=== PATIENT | male | born 1945 | race Caucasian/White ===

== ENCOUNTER 2025-04-21 09:36 | Outpatient (AMB) | payer OTHER, SELFPAY ==
--- NOTE | 2025-04-21 09:58 | MHC.OFFVIS ---
Intake Visit Reasons: Elevated PSA Intake Note: New Patient is present for elevated PSA Urology Rx: none PVR:none Blood Thinners:none Imaging completed: none Labs done 01/17/25 PSA 11.0 Grading Supervisor Required: No Accompanied by: Self / Same As Patient Allergies No Known Allergies Allergy (Verified 04/21/25 10:02) HPI Comments Details: Chriss is a pleasant male. He is a patient of Dr. Lester. He is seen for the following urologic conditions - elevated PSA Elevated PSA He presents for Initial evaluation of elevated PSA - 11 Lower Urinary Tract Symptoms include - minimal Investigations include - PSA - 11 - NATHANIEL firm on right side Individualized Prostate Cancer Risk Calculator - PCPT Calculator Therapeutic plan will be - prostate needle biopsy, start finasteride Review of Systems Const Denies chills and Denies fever(s) Card Reports no additional complaints and Denies syncope Resp Denies cough GI Denies abdominal pain and Denies heartburn Reports as per HPI and Denies change in libido Neuro Denies syncope Psych Denies change in libido Endo Denies change in libido Physical Exam Const General: cooperative, healthy appearing, comfortable and no acute distress Orientation/consciousness: patient oriented x3 HEENT Face and sinus: Yes normal facial exam Mouth: moist mucous membranes Neck Neck: Yes normal visual inspection, Yes full ROM and Yes trachea midline Chest Chest palpation & inspection: normal inspection of the chest Resp Effort & Inspection: normal respiratory effort, able to speak in complete sentences and no respiratory distress GI Inspection: Yes normal to inspection Rectal Exam - Male: Yes normal sphincter tone and Yes prostate normal Male General Exam: Yes normal external exam Penis: normal penis and circumcised Meatus: meatus normal Scrotum: scrotum normal Testes: Testes normal Back/Spine/Pelvis Cervical Spine: normal cervical lordosis Thoracic/Lumbar Spine: thoracic and lumbar spine normal to inspection Skin General skin exam: no rashes or lesions noted Neuro General: patient oriented x3, gait normal, tone normal and moves all extremities Extrem General: Yes normal to inspection and Yes capillary refill normal Assessment & Plan Assessment & Plan (1) Elevated PSA: Code(s): R97.20 - Elevated prostate specific antigen [PSA] Category: Medical Plan Risks and benefits regarding trans rectal ultrasound with prostate biopsy were discussed. Options of continued surveillance, no treatment and biopsy were offered. The risks include but are not limited to, urinary tract infection, sepsis, difficulty urinating, bleeding into the rectum or bladder that requires intervention and transfusion,and failure to diagnose prostate cancer. The patient understands the options and the risks involved. They wish to proceed. Printed information was provided to ensure he remains off anticoagulation for the appropriate length of time. He may require cardiology or PCP clearance. An antibiotic will be administered prior to, and following the procedure Medications: New levofloxacin take 1 tablet day before procedure, 1 tablet day of procedure and 1 tablet day after procedure 500 mg PO DAILY 3 tabs 0RF 3 days R97.20 - Elevated prostate specific antigen [PSA] finasteride 5 mg PO DAILY 90 tabs 1RF 90 days R97.20 - Elevated prostate specific antigen [PSA] Patient Instructions: This note is constructed using voice recognition software. While every effort has been made to ensure accuracy horizontal boring mill set up operator errors may have been included. Imaging studies, laboratory and physical exam results were discussed and reviewed in detail. No major barriers to patient understanding were identified. An opportunity to ask questions regarding the treatment plan was provided. All questions were answered. The patient expressed understanding and agreement with the above treatment plan. The patient is aware they should contact our office by phone for worsening of their current condition or the appearance of new urologic symptoms. Compliance is encouraged with any medications and followup testing that is ordered. It is a privilege to participate in the urologic care of your patient. If you have any questions or concerns regarding treatment for the above conditions, or other urologic issues, please do not hesitate to contact me. The office telephone contact is [phone]. Sincerely, Dr James Euceda MD, YAZMIN [facility] - Urology Compassionate Specialist Care for the Genitourinary System Coding Level of Care Code New Pt Level 4 (39524) Diagnoses Elevated PSA R97.20
== END 2025-04-21 10:27 | disposition home or self-care (01) ==
LOC: HO.HUSH 09:37
PROVIDERS: PCP Internal Medicine; Visit Provider Urology
DX: R97.20 Elevated prostate specific antigen [PSA] (principal); Z13.9 Encounter for screening, unspecified
CPT/HCPCS: 99204

== ENCOUNTER → 2025-04-21 09:36 | Outpatient (BNVA) | payer OTHER, SELFPAY | PROVIDERS: PCP Internal Medicine; Visit Provider Urology | DX: R97.20 Elevated prostate specific antigen [PSA] (principal) | CPT/HCPCS: 81003 ==

== ENCOUNTER 2025-05-16 07:46 | Outpatient (REF) | payer OTHER, SELFPAY ==
--- OUTSIDE RECORDS SUMMARY | 2025-05-16 07:49 | XMS_ITS | Clinical Summary ---
Author Organization [facility] Address [address] [place] [address] Phone Care Team Providers Care High Density Talc Coater Operator Name Role Phone José Miguel Schultz MD Primary Care Provider Allergies No known active allergies Medications pravastatin (PRAVACHOL) 20 MG tablet Take 20 mg by mouth daily. Active Active Problems No known active problems Social History Tobacco Use Types Packs/Day Years Used Date Smoking Tobacco: Former Smokeless Tobacco: Never Alcohol Use Standard Drinks/Week Comments Yes 0 (1 standard drink = 0.6 oz pur e alcohol) Education Answer Date Recorded Are you interested in more education? Not on flavio e 12/05/2022 Are you concerned about learning? Not on file 12/05/2022 No 12/05/2022 No 12/05/2022 Digital Access Answer Date Recorded No 01/03/2023 No 01/03/2023 No 01/03/2023 Reliable internet access at home? Not on file 01/03/2023 Device with a working camera? Not on file Sex and Gender Information Value Date Recorded Sex Assigned at Not on file Legal Sex Male 8:41 AM EDT Gender Identity Not on file Sexual Orientation Not on file Last Filed Vital Signs Vital Sign Reading Time Taken Comments Blood Pressure - - Pulse - - Temperature - - Respiratory Rate - - Oxygen Saturation - - Inhaled Oxygen Concentration - - Weight 99.8 kg (220 lb) 12/24/2018 1:33 PM EDT Height 177.8 cm (5' 10 ) 12/24/2018 1:33 PM EDT Body Mass Index 31.57 12/24/2018 1:33 PM EDT Plan of Treatment Health Maintenance Due Date Last Done Comments Adult Td,Tdap Booster 1944 LIPID PANEL 1944 DEPRESSION SCREENING 1956 SMOKING Hx and SMOKELESS TOBACCO SCREENING 1957 PNEUMOCOCCAL VACCINES (50+ years) (1 of 1 - PCV) 1994 ZOSTER VACCINES (1 of 2) 1994 RSV VACCINE (1 - 1-dose 75+ series) 2019 INFLUENZA VACCINE (#1) 2025 COVID-19 VACCINE (3 - 2024-2 6 season) 2025 10/04/2020, 09/13/2020 HEPATITIS A VACCINES Aged Out No long er eligible based on patient's age to complete this topic HIB VACCINES Aged Out No longer eligi ble based on patient's age to complete this topic MENINGOCOCCAL VACCINES (ACWY) Aged Out No longer eligible based on patient's age to complete this topic MENINGOCOCCAL VACCINES (B) Aged Out N o longer eligible based on patient's age to complete this topic Medical Devices Not on file Insurance [employer] TOTAL CHOICE INDEMNITY [employer] TOTAL CHOICE INDEMNITY [employer] TOTAL CHOICE INDEMNITY [employer] TOTAL CHOICE INDEMNITY [employer] TOTAL CHOICE INDEMNITY [employer] TOTAL CHOICE INDEMNITY [employer] TOTAL CHOICE INDEMNITY [employer] TOTAL CHOICE INDEMNITY [facility] TOTAL CHOICE INDEMNITY Care Teams High Density Talc Coater Operator Relationship Specialty Start Date End Date José Miguel Schultz MD [address] [place] [address] PCP - General Internal Medicine 12/09/18 Additional Source Comments The information contained in this document represents components of the legal health record. It is not the complete legal health record.[facility]
[2025-05-16] MEDS: Lidocaine HCl 1 % MPF 30 ML VIAL SUBCUT (08:17)
--- NOTE | 2025-05-16 08:42 | P.OP_ITS ---
Operative Note Operative Note Date of Service: 05/16/25 Narrative: Preoperative diagnosis: Elevated PSA Postoperative diagnosis: Elevated PSA Procedure: 1. transrectal ultrasound measurement of prostate 2. transrectal ultrasound-guided pudendal nerve block 3. transrectal ultrasound-guided prostate biopsy 12 core Surgeon: Dr. James Euceda Anesthetic: 10cc 1% lidocaine Indications for procedure: Elevated PSA Counselling: Technical aspects, risks and benefits of proposed procedure were discussed in full. All questions have been answered, written consent has been obtained and patient agrees to proceed. Procedure: The patient was brought into the procedure area and placed in a left lateral decubitus position. Patient identity confirmed. Perioperative antibiotics confirmed. Safety pause time out performed. NATHANIEL was performed to dilate rectal sphincter Iodine 10cc with 60 cc gel was placed per rectum to reduce infection risk using a catheter tip syringe. 8 Hz Maribell rectal end-fire ultrasound probe was placed transrectally without difficulty. The prostate was visualized. Seminal vesicles were normal. Prostate margins were clearly demarcated. Bladder was seen superiorly. No cystic structures were noted Yes - calcifications were noted at the surgical margin The prostate was otherwise homogeneous in nature - there were no features to suggest localized nodularity or a break of the prostatic capsule suggestive of prostate cancer The prostate was measured in 3 dimensions Prostatic Width: 5.5 cm Prostatic Height: 4.4 cm Urethral Length: 5.3 cm Total volume equals : 70 ml An ultrasound-guided pudendal nerve block was performed using a 22 gauge spinal needle in the sagittal plane. 4 cc of 1% lidocaine placed at the junction of each seminal vesicle and 2 cc placed at the apex of the prostate. A 12 core biopsy was performed with 6 cores each side using an 18 gauge prostate biopsy gun. Two cores each were taken at the prostate apex, mid and base on each side. Cores were spaced between lateral and medial aspects. Each core was examined as placed on specimen foam as part of water quality technician to ensure a minimum 1 cm of length and minimal discontinuity. He tolerated the procedure well with minimal rectal bleeding. Blood pressure remained stable following procedure. He was able to ambulate to bathroom after 5 minutes. Printed instructions regarding antibiotic use and common adverse events from the procedure such as low-grade temperature, potential infection and bleeding were given. He understands to call the office or go to an emergency room should any of these events arise. Pathology: 12 core prostate biopsy. CPT code 44807: Transrectal ultrasound; this is a diagnostic test for evaluation of the prostate and surrounding structures, looking for abnormalities or suspicious areas worrisome for cancer CPT code 77859: Biopsy, prostate; needle or punch, single or multiple, any approach CPT code 80942: Ultrasonic guidance for needle placement (eg, biopsy, aspiration, injection, localization device), imaging supervision and interpretation
== END 2025-05-16 07:47 | disposition home or self-care (01) ==
LOC: HO.US 07:46
PROVIDERS: PCP Internal Medicine; Visit Provider Urology
DX: R97.20 Elevated prostate specific antigen [PSA] (principal)
CPT/HCPCS: 55700; 76942; 88305; 88344; J2003

== ENCOUNTER → 2025-05-16 07:46 | Outpatient (BNV) | payer OTHER, SELFPAY | PROVIDERS: PCP Internal Medicine; Visit Provider Urology | DX: R97.20 Elevated prostate specific antigen [PSA] (principal) | CPT/HCPCS: 55700; 76872; 76942 ==

== ENCOUNTER 2025-06-08 13:00 | Outpatient (AMB) | payer OTHER, SELFPAY ==
--- NOTE | 2025-06-08 13:00 | A.OFFVIS_ITS ---
Intake Visit Reasons: Prostate biopsy results Intake Note: Patient is present for Telehealth For Prostate Biopsy Results Urology Med: Finasteride Antibiotic Allergy: None Blood Thinner: None Rotary Drill Operator Required: No Accompanied by: Self / Same As Patient Allergies No Known Allergies Allergy (Verified 06/08/25 13:01) HPI Comments Details: Chriss is a pleasant male. He is a patient of Dr. Adorno. He is seen for the following urologic conditions - elevated PSA Telemedicine Evaluation 15 min Consultation Qoniac Angie Video Moderate volume low-grade prostate cancer Obtain genetics Initial management surveillance Continue finasteride 4 month follow-up check PSA Prostate Cancer Grade Group 2 - 02/18 cores PSA at diagnosis 11 PT2a 70 g prostate 06/03 Quincy score: 7 (3+4) (left mid lateral, left base medial, right mid medial,right apex medial, and right base lateral), 6 (3+3) (left base lateral and right mid lateral) % of pattern 4: 17% % of pattern 5: 0% Grade group: 2 and 1 Tumor quantitation: Number cores positive: 7 Total number of cores: 13 % of tissue involved: 15% Periprostatic fat inv.: Not identified Seminal vesicle inv.: Not identified Perineural inv.: Present Lymphatic and/or vascular invasion: Not identified Elevated PSA He presents for Further evaluation of elevated PSA - 11 Lower Urinary Tract Symptoms include - minimal Initial Investigations include - PSA - 11 - NATHANIEL firm on right side Individualized Prostate Cancer Risk Calculator - PCPT Calculator Therapeutic plan will be - prostate needle biopsy, start finasteride PFSH Medical History (Updated 06/08/25 @ 13:16 by James Euceda MD) Tubular adenoma Hypercholesterolemia Meningioma Surgical History (Updated 06/08/25 @ 13:03 by DAVID Sofia) History of total left knee replacement (TKR) S/P arthroscopic surgery of left knee Social History (Updated 06/08/25 @ 13:03 by DAVID Sofia) Patient Tobacco Use Status: Former Tobacco user Review of Systems Const All systems reviewed & are unremarkable except as noted in HPI and below Reports no additional complaints Resp Reports no additional complaints GI Reports no additional complaints Reports as per HPI Musc Reports no additional complaints Physical Exam Telemedicine evaluation Appropriate responses Regular breathing rate and rhythm HEENT Head: Yes normal to inspection Ears: hearing grossly normal bilaterally Eyes General: appearance normal, both eyes and all related structures Neck Neck: Yes normal visual inspection Chest Chest palpation & inspection: normal inspection of the chest Resp Effort & Inspection: normal respiratory effort and able to speak in complete sentences Telehealth Telehealth Telehealth Platform: Qoniac Location of provider rendering services: practice address Location of patient: address on file Patient Identification confirmed using: Name, : Yes Telehealth method: voice only Patient verbally consented to treatment: Yes Patient verbally consented to billing insurance company: Yes Patient informed of any privacy concerns related to visit: Yes Minutes spent on Phone/Video with Pt.: 15 Assessment & Plan Assessment & Plan (1) Hormone sensitive prostate cancer: Code(s): C61 - Malignant neoplasm of prostate; Z19.1 - Hormone sensitive malignancy statu s Category: Medical Plan Start finasteride Prolaris Orders: Orders PSA,Total (Free>4and<10) 4 Months C61 - Malignant neoplasm of prostate, Z19.1 - Hormone sensitive malignancy status Patient Instructions: This note is constructed using voice recognition software. While every effort has been made to ensure accuracy manager editorial errors may have been included. Imaging studies, laboratory and physical exam results were discussed and reviewed in detail. No major barriers to patient understanding were identified. An opportunity to ask questions regarding the treatment plan was provided. All questions were answered. The patient expressed understanding and agreement with the above treatment plan. The patient is aware they should contact our office by phone for worsening of their current condition or the appearance of new urologic symptoms. Compliance is encouraged with any medications and followup testing that is ordered. It is a privilege to participate in the urologic care of your patient. If you have any questions or concerns regarding treatment for the above conditions, or other urologic issues, please do not hesitate to contact me. The office telephone contact is [phone]. Sincerely, Dr James Euceda MD, YAZ[facility] - Urology Compassionate Specialist Care for the Genitourinary System Coding Level of Care Code Tele Est Pt Level 3 (84436) Complex EM visit Add On G2211 Diagnoses Hormone sensitive prostate cancer C61; Z19.1
--- OUTSIDE RECORDS SUMMARY | 2025-06-08 15:51 | XMS_ITS | Clinical Summary ---
Author Organization [facility] Address [address] [place] [address] Phone Care Team Providers Care Data Collection Specialist Name Role Phone José Miguel Schultz MD [...] topic Medical Devices Not on file Insurance [employer] TOTAL CHOICE INDEMNITY [employer] TOTAL CHOICE INDEMNITY [employer] TOTAL CHOICE INDEMNITY [employer] TOTAL CHOICE INDEMNITY [employer] TOTAL CHOICE INDEMNITY [employer] TOTAL CHOICE INDEMNITY [employer] TOTAL CHOICE INDEMNITY [employer] TOTAL CHOICE INDEMNITY [facility] TOTAL CHOICE INDEMNITY Care Teams Data Collection Specialist Relationship Specialty Start Date End Date José Miguel Schultz MD [address] [place] [address] PCP - General Internal Medicine 12/09/18 Additional Source Comments The information contained in this document represents components of the legal health record. It is not the complete legal health record.[facility]
--- OUTSIDE RECORDS SUMMARY | 2025-06-08 15:51 | XMS_ITS | Data Portability ---
Author Organization [facility] [place], [facility] Address [address] [place] [address] Care Team Providers Care Principle Software Engineer Name Role Phone CASIE GUZMANREN Primary Care Provider Assessment No assessment recorded. Plan of Treatment Reminders Order Date Submit Date Provider Last Modified By Organization Details Last Modified Time Details Appointments None record ed. Lab None record ed. Referral None record ed. Procedures None record ed. Surgeries None record ed. Imaging None record ed. Medication Orders None record ed. Patient TargetsNo targets recorded. Patient InstructionsNo instructions recorded. Reason for Referral None Reported. Procedures Surgical History Date Name Laterality Status Provider Name and Address Organization Details Recorded Time Orthopaedic Surgery completed Zaira Euceda [facility] 09/03/2022 08:52:04 Imaging Results None recorded. Procedure Notes None recorded. Medical Equipment None Reported. Allergies No known drug allergies Medications Name Sig Start Date Stop Date Status Note LastModified by Organization Details LastModified Time amoxicillin 500 mg capsule TAKE 4 CAPSULES BY MOUTH 1 HOUR PRIOR TO DENTAL WORK 09/03 completed Not Available Not Available Not Available triamcinolo ne acetonide 0.1 % topical cream TAKE 1 APPLICATI ON EXTERNALL Y TWICE A DAY active Not Available Not Available No t Available omeprazole 20 mg capsule,del ayed release TAKE 1 CAPSULE BY MOUTH EVERY DAY 2022 active Not Available Not Available Not Avai lable pravastatin 20 mg tablet TAKE 1 TABLET BY MOUTH EVERYDAY AT BEDTIME active Not Available Not Available No t Available GaviLyte-G 236 gram-22.74 gram-6.74 gram-5.86 gram oral solution 09/03 completed Not Available Not Available Not Available Vitals Date Recorded Body height Body mass index (BMI) Body weight Provider Name and Address Organization Details Last Updated DateTime 09/03/2022 177.8 cm 31.6 kg/m2 38708.32 g Zaira Ok [facility] 09/03/2022 08:50:20 Social History Question Answer Notes LastModified by [employer] Details LastModified Time Tobacco Smoking Status Former Smoker Zaira Ok luna [facility] 09/03/2022 08:50:29 What Is Your Level Of Caffeine Consumption? Moderate [email or web address] Information not available 09/03/2022 Date Of Injury/Duration Of Injury (weeks, Months, Years) Total Knee Replacement [email or web address] Information not available 09/03/2022 Have Any Other Tests Been Done For This Problem? X-ray [email or web address] Information not available 09/03/2022 Is This Condition/proble m Affecting Your Ability To Exercise Or Perform Activities Of Daily Living? No [email or web address] Information not available 09/03/2022 How Much Tobacco Do You Smoke? No [email or web address] Information not available 09/03/2022 What Types Of Sporting Activities Do You Participate In? [employer] [email or web address] Information not available 09/03/2022 How Many Years Have You Smoked Tobacco? 15 [email or web address] Information not available 09/03/2022 Sex: Unknown Functional Status Question Answer Note LastModified by [employer] Details LastModified Time What is your level of alcohol consumption? None Information not available 09/03/2022 Do you or have you ever used smokeless tobacco? Never used smokeless tobacco Information not available 09/03/2022 Are you currently employed? No Information not available 09/03/2022 What is your occupation? Retired [email or web address] Information not available 09/03/2022 Do you or have you ever used e-cigarettes or vape? Never used electronic cigarettes [email or web address] Information not available 09/03/2022 What is your exercise level? Moderate [email or web address] Information not available 09/03/2022 Mental Status None recorded. Family History Relationship Description Onset Age of this Age Resolved Age Notes LastModified by Organization Details LastModified Time Father No current problems or disability [email or web address] Not available 09/03 08:51:48 Mother No current problems or disability [email or web address] Not available 09/03 08:51:48 Medical History No medical history recorded. Past Encounters Encounter ID Performer Location Encounter Start Date Encounter Closed Date Diagnosis/Indication Diagnosis SNOMED-CT Code Diagnosis ICD10 Code Diagnosis IMO Codes Diagnosis Note [id number] CHELITA MARTINS NP [facility] [address] [place] [address] 09/03/2022 08:38:05 09/03/2022 09:26:40 Osteoarthritis of left knee joint [id number] 02185 M17.12 I discussed the TKA with the patient today. I have encouraged continued exercises at home with specific emphasis on strengthen ing the quadriceps to full extension, as well as working on flexion and ROM of the knee, even with just at home exercise. For patients with chronic stasis, edema, or propensity for edema with cellulitis , we've encouraged consulting their PCP for continued supportive stocking use. We discussed avoiding the dentist until 3 months post op. We have spoken about antibiotic prophylaxi s. We recommend Amoxicilli n and they will contact us for prescripti ons if they are getting dental work or any other invasive procedures . If there is an allergy we will discuss further, and make recommenda tions for antibiotic use that will be on a continuing basis until 1 year post op, in which case they may stop antibiotic prophylaxi s if they'd like to. If they want to continue with antibiotic prophylaxi s, they may. The patient should continue with outpatient physical therapy to optimize their outcome. Follow up with us with any problems or concerns and see us back as instructed for routine follow up. Health Concerns Section Related Observation LastModified by Organization Detai ls LastModified Time None Recorded Concern Status LastModified by Organization Details LastModified Time None Recorded Advance Directives Directive None Recorded Payers Insurance Date Sequence Insurance Name Policy Number Policy Maldonado Covered Member ID Maldonado Member ID Guarantor Name 09/04/2022 1 [facility] [id number] Chriss Bray [id number] Chriss Bray Notes Date Note Type Note Provider Name and Address Organization Details Recorded Time 09/03/2022 text/html The patient is 1 year status post a LEFT total knee replacement with Dr. Edge. The patient has NO pain. There IS NOT instability. The patient ambulates today WITHOUT AN ASSISTIVE DEVICE. CHELITA MARTINS NP [address] [place], [address], [facility] 09/03/2022 09:24:30
== END 2025-06-08 15:02 | disposition home or self-care (01) ==
LOC: HO.HUSH 13:00
PROVIDERS: PCP Internal Medicine; Visit Provider Urology
DX: C61 Malignant neoplasm of prostate (principal); Z19.1 Hormone sensitive malignancy status
CPT/HCPCS: 98013